=== PATIENT | female | born 1955 ===

== ENCOUNTER → 2024-05-07 | Day surgery (SDC) | payer OTHER ==
[2024-05-03 11:14] VITALS: BP 127/77
[~2024-05-07] VITALS: Ht 162.6 cm; Wt 104.3 kg
[~2024-05-07] MED LIST: ALLEGRA ALLERG180 MG PO; BUPIVACAINE LIPOSOME/PF 266 MG/20 ML VIAL IJ ONE; CEFTRIAXONE SODIUM 2,000 MG VIAL ONE; COMPLEJO B; DIBUCAINE 30 GM TUBE ONE; HEMOSTATIC MATRIX 1 KIT KIT TOP ONE; HYDROGEN PEROXIDE 118 ML SOLUTION TOP ONE; HYDROGEN PEROXIDE 473 ML BOTTLE TOP ONE; HYZAAR 100-12.1 EACH PO; METRONIDAZOLE/SODIUM CHLORIDE 500 MG/100 ML PIGGYBACK IV ONE; NEURONTIN300 MG PO; PAIN RELIEF EX500 MG; POVIDONE-IODINE 118 ML BOTT TOP ONE; TRAM1TAB98 PO; VITAMIN D31250 MCG; ZYRTEC10 M3 PO
== END | disposition home or self-care (01) ==
LOC: ADM 05-03 10:45 → CIR.AMB 05:59
PROVIDERS: ATTEND Surgery
DX: K60.30 Anal fistula, unspecified (principal); K62.89 Other specified diseases of anus and rectum; K64.0 First degree hemorrhoids; Z88.2 Allergy status to sulfonamides; I10 Essential (primary) hypertension; E11.9 Type 2 diabetes mellitus without complications; J44.9 Chronic obstructive pulmonary disease, unspecified